=== PATIENT | male | born 1940 | race Caucasian/White ===

== ENCOUNTER 2021-07-15 08:39 | Outpatient (REF) | payer OTHER, SELFPAY ==
[2021-07-15 10:26] LABS: Hematocrit 48.1 % (42.0-52.0); Hemoglobin 15.5 g/dl (14.0-18.0); Mean Corpuscular HGB Conc 32.2 g/dl (31.0-36.0); Mean Corpuscular Hemoglobin 31.2 pg (27.0-33.0); Mean Corpuscular Volume 96.8 fL (80.0-98.0); Mean Platelet Volume 9.7 fL (9.4-12.4); Platelet Count 224 X10*3/uL (160-400); Red Blood Count 4.97 X10*6/uL (4.60-5.80); Red Cell Distribution Width 13.6 % (11.0-16.0); White Blood Count 5.1 X10*3/uL (4.8-10.8)
[2021-07-15 10:45] LABS: Alanine Aminotransferase 12 U/L (0-40); Alkaline Phosphatase 59 U/L (39-117); Anion Gap 10 (12-20); Aspartate Amino Transferase 21 U/L (5-37); Bilirubin Total 0.6 mg/dL (0.0-1.0); Blood Urea Nitrogen 20 mg/dL (9-16); Calcium 9.6 mg/dL (8.4-10.2); Carbon Dioxide 30 mmol/L (22-29); Chloride 106 mmol/L (96-108); Estimated Glomerular Filt Rate > 60; Glucose Random 95 mg/dL (60-115); Potassium 4.6 mmol/L (3.3-5.1); Sodium 141 mmol/L (135-145); Total Protein 6.8 g/dL (6.5-8.0)
[2021-07-15 11:03] LABS: TSH reflex Free T4 2.77 uIU/mL (0.32-4.0)
[2021-07-15 11:30] LABS: Folate 9.8 ng/mL (> or = 4.0); Vitamin B12 362 pg/mL (200-900)
[2021-07-16 08:28] LABS: Syphilis Screen Nonreactive (Nonreactive)
[2021-07-16 20:46] LABS: Homocysteine 13.8 umol/L (<11.4)
[2021-07-19 14:31] LABS: Methylmalonic Acid 170 nmol/L (87-318)
== END 2021-07-15 08:40 | disposition home or self-care (01) ==
LOC: HO.LAB 08:39
PROVIDERS: PCP Nurse Practitioner Family; Visit Provider Nurse Practitioner Family
DX: F09 Unspecified mental disorder due to known physiological condition (principal); R53.83 Other fatigue
CPT/HCPCS: 36415; 80053; 82607; 82746; 83090; 83921; 84443; 85027; 86780